=== PATIENT | male | born 1990 | race Caucasian/White ===

== ENCOUNTER 2020-06-12 17:03 | Outpatient (CLI) | payer BC, SELFPAY | END 2020-06-12 17:04 | disposition home or self-care (01) | LOC: CHSLAB 17:09 | PROVIDERS: PCP Physician Assistant; Visit Provider Specialist | DX: C44.319 Basal cell carcinoma of skin of other parts of face (principal) | CPT/HCPCS: 88305 ==

== ENCOUNTER 2021-03-26 15:57 | Outpatient (CLI) | payer BC, SELFPAY | END 2021-03-26 15:58 | disposition home or self-care (01) | LOC: CHSLAB 16:07 | PROVIDERS: PCP Physician Assistant; Visit Provider Specialist | DX: D22.5 Melanocytic nevi of trunk (principal) | CPT/HCPCS: 88305 ==